=== PATIENT | female | born 1975 | race Hispanic/Latino ===

== ENCOUNTER 2017-11-26 12:01 | Emergency (ER) | payer MEDICAID, OTHER ==
[2017-11-26] MEDS ORDERED: Adacel (T-DAP) 0.5 ML VIAL ONE (12:11)
--- NOTE | 2017-11-26 12:48 | RAD ---
TWO VIEWS RIGHT FOREARM: Comparison: None. History: Puncture wound to the forearm with a meat thermometer at 11:00 today. Right arm pain. FINDINGS: Two views right forearm shows no evidence of fracture or dislocation. No radiopaque foreign body is s een. Mild soft tissue swelling is seen along the midportion of the radius and ulna. IMPRESSION: No evidence of acute osseous abnormality. POS: [facility]
[2017-11-26] MEDS ORDERED: Acetaminophen 325 MG TAB ONE (13:04)
[2017-11-26] MEDS ORDERED: Bacitracin Zinc 1 Packet ONE (13:04)
== END 2017-11-26 13:15 | disposition home or self-care (01) ==
LOC: SCSER 12:01
DX: S51.831A Puncture wound without foreign body of right forearm, initial encounter (principal); Z86.718 Personal history of other venous thrombosis and embolism; W22.8XXA Striking against or struck by other objects, initial encounter; Y99.0 Civilian activity done for income or pay
CPT/HCPCS: 90715

== ENCOUNTER 2018-02-11 06:47 | Inpatient (IN) | payer MEDICAID, SELFPAY ==
[2018-02-11 07:23] LABS: #Basophils 0.1 thou/uL (0.0-0.2); #Eosinphils 0.7 thou/uL (0.0-0.7); #Lymphocytes 1.1 thou/uL (1.20-3.40); #Monocytes 0.4 thou/uL (0.11-0.59); #Neutrophils 7.9 thou/uL (1.40-6.50); %Eosinophils 6.7 % (0.0-10.0); %Lymphocytes 11.2 % (21.0-51.0); %Monocytes 3.6 % (0.0-10.0); %Neutrophils 77.5 % (42.0-75.0); Hemoglobin 14.5 g/dL (12.0-16.0); Mean Corpuscular HGB CONC 35.9 g/dL (32.0-36.0); Mean Corpuscular Hemoglobin 30.4 pg (27.0-31.0); Mean Corpuscular Volume 84.8 fl (81.0-99.0); Mean Platelet Volume 7.4 fL (7.4-10.4); Platelet Count 235 thou/uL (130-400); RBC Distribution Width 12.5 % (11.5-14.5); Red Blood Cell (RBC) Count 4.78 mill/uL (4.20-5.40); White Blood Cell (WBC) Count 10.2 thou/uL (4.8-10.8)
[2018-02-11 07:28] LABS: PTT 28.1 SEC (22.9-36.1); Prothrombin Time 13.4 SEC (12.0-14.7)
[2018-02-11 07:36] LABS: ALT (SGPT) 25 U/L (8-55); AST (SGOT) 19 U/L (5-34); Albumin 3.7 g/dL (3.5-5.0); Alkaline Phosphatase 83 U/L (40-150); Anion Gap 15 mmol/L (10-20); BUN (Urea Nitrogen) 11 mg/dL (7.0-18.7); Bilirubin, Total 0.4 mg/dL (0.2-1.2); Calc. Creatinine Clearance 0 mL/min (70-130); Calcium 9.1 mg/dL (7.8-10.44); Carbon Dioxide 19 mmol/L (22-29); Chloride 111 mmol/L (98-107); Estimated GFR-MDRD 83; Globulin 3.4 g/dL (2.4-3.5); Glucose 100 mg/dL (70-105); Potassium 3.9 mmol/L (3.5-5.1); Protein, Total 7.1 g/dL (6.0-8.3); Sodium 141 mmol/L (136-145)
[2018-02-11 07:39] LABS: Troponin I Less than 0.010 ng/mL (< 0.028)
[2018-02-11 07:43] LABS: D-Dimer Test 17.94 *mcg/mL (0.27-0.43)
[2018-02-11] MEDS ORDERED: Enoxaparin Sodium 60 MG/0.6 ML SYRINGE ONE (08:40)
[2018-02-11] MEDS ORDERED: Acetaminophen 325 MG TAB ONE (10:21)
--- NOTE | 2018-02-11 10:21 | CT ---
CT PULMONARY ANGIO CHEST INCLUDING 3D RENDERING: Date: 02/11/18 HISTORY: 42-year-old female with history of chest pain. FINDINGS: There are multiple intra pulmonary artery filling defects including portions of the right upper lobe, right mid lung zone, and right lower lobe branches, as well as some left upper lobe and left lower l obe branches, evidence for extensive bilateral pulmonary emboli. There are some minimal primarily ple ural based parenchymal changes in the left apex, which could represent some pneumonia or pneumonitis, although given the PE may represent some atelectasis and/or evidence for pulmonary infarction, as we ll as some multifocal pulmonary infarction changes, which would be most marked in the left apex, righ t upper lobe, and left lower lobe. No definitive CT evidence for significant right heart strain. No m ediastinal mass or adenopathy. No pleural effusion or pericardial effusion. IMPRESSION: Extensive bilateral pulmonary emboli. Patchy mostly pleural based alveolar parenchymal changes involv ing the right upper lobe, left upper lobe, and left base, possibly representing patchy pneumonia vers us some changes of patchy pulmonary infarction given the extensive bilateral PE. Continue short-term follow-up in that regard. No mediastinal adenopathy or pleural effusion or pericardial effusion. Findings discussed with Dr. Patterson in the ER at 0840 hours. CODE CR. POS: [facility]
--- NOTE | 2018-02-11 10:43 | ULT ---
BILATERAL LOWER EXTREMITY VENOUS DOPPLER ULTRASOUND: Date: 02/11/18 HISTORY: Right posterior calf and thigh pain. TECHNIQUE: Vallejo scale ultrasound with color flow and spectral Doppler imaging of the deep venous systems of the lower extremities was performed bilaterally. FINDINGS: There is absence of flow and compression due to occlusive thrombus in the deep veins of the lower ext remities bilaterally extending from the right common femoral vein down to the mid posterior tibial ve in on the right and from the femoral vein to the mid posterior tibial vein on the left. The deep femo ral veins are patent on either side. IMPRESSION: Bilateral lower extremity deep venous thrombosis. Results discussed with Dr. Artis at 0848 hours. CODE CR. POS: [facility]
[2018-02-11] MEDS ORDERED: Iopamidol 370 76% 100 ML VIAL ONE (13:05)
[2018-02-11 14:21] VITALS: BMI 42.9
[2018-02-11 15:43] LABS: Troponin I Less than 0.010 ng/mL (< 0.028)
[2018-02-11] MEDS ORDERED: cloNIDine 0.1 MG TAB PO PRN (19:24)
[2018-02-11] MEDS ORDERED: Benzonatate 100 MG CAP PO PRN (19:24)
[2018-02-11] MEDS ORDERED: hydrALAZINE 20 MG/ML VIAL SLOW IVP PRN (19:24)
[2018-02-11] MEDS ORDERED: Ondansetron HCl/PF 4 MG/2 ML Vial IVP PRN (19:24)
[2018-02-11] MEDS: traMADol HCl 50 MG TAB PO PRN (20:22)
[2018-02-11] MEDS: Enoxaparin Sodium 100 MG/ML SYRINGE SC SCH (20:23)
[2018-02-11] MEDS: Enoxaparin Sodium 30 MG/0.3 ML SYRINGE SC SCH (20:23)
[2018-02-11] MEDS: Famotidine 20 MG TAB PO SCH (20:23)
[2018-02-11] MEDS ORDERED: Enoxaparin Sodium 80 MG/0.8 ML SYRINGE SC SCH (21:00)
--- NOTE | 2018-02-12 02:10 | HP ---
DATE OF ADMISSION: 02/11/2018 PRIMARY CARE PHYSICIAN: Dr. Fernando Sexton. CHIEF COMPLAINT: Right lower extremity pain and shortness of breath with chest pain. HISTORY OF PRESENT ILLNESS: This is a 42-year-old female, who presents to [facility] complaining of approximately 4-5 day history of increasing right lower extremity jaren n, redness and swelling. The patient states she initially noticed pain in the calf region as well as the thigh and became concerned of a possible blood clot in her leg after experiencing a left lower e xtremity DVT in 2002 after the of her child. The patient states she was on oral contraceptives at that time and developed a blood clot. The patient was treated intermittently with Coumadin; cira ricci, had been off Coumadin over the last 12-13 years until recently in 2016. The patient was on Coum prema, she states until 08/2017 where she abruptly discontinued the medication. The patient denied an y recent trauma, injury, long distance travel, recent surgeries or hormone replacement therapy. The patient does state that she was taking 650 mg of aspirin over the last 4-5 days after pain developed in the right lower extremity. The patient was checking the internet and google for her symptoms, try ing to self diagnose during this time course. The patient also noted increasing chest pain with marilyn p stabbing knife-like sensation in her back radiating to the front of her chest with increased cough and shortness of breath. The patient took Advil PM for some relief of her symptoms; however, the sym ptoms always returned. The patient denies any loss of consciousness, hemoptysis, fever or chills, or high altitude exposure. In the emergency department, the patient underwent general evaluation inclu ding bilateral venous Doppler study showing evidence of extensive bilateral DVTs of the lower extremi ties. The patient also underwent CT angiogram of the chest showing extensive bilateral pulmonary emb lili. The patient received Lovenox 1 mg/kg in the emergency room and was transferred to the [facility] for evaluation. PAST MEDICAL HISTORY: 1. History of left lower extremity DVT in 2002 with intermittent Coumadin. 2. Morbid obesity. 3. Question of hypertension. PAST SURGICAL HISTORY: 1. Status post section. 2. Status post hysterectomy. CURRENT MEDICATIONS: Aspirin 650 mg p.o. daily. ALLERGIES: No known drug allergies. FAMILY HISTORY: No inheritable diseases per patient report. SOCIAL HISTORY: The patient is single, accompanied by her significant other in the hospital. Works for [employer]. Denies alcohol, tobacco or illicit drug use. Funct ional of all activities of daily living. REVIEW OF SYSTEMS: The following complete review of systems was negative, unless otherwise mentioned in the HPI or below: Constitutional: Weight loss or gain, ability to conduct usual activities. Sk in: Rash, itching. Eyes: Double vision, pain. ENT/Mouth: Nose bleeding, neck stiffness, pain, te nderness. Cardiovascular: Palpitations, dyspnea on exertion, orthopnea. Respiratory: Shortness of breath, wheezing, cough, hemoptysis, fever or night sweats. Gastrointestinal: Poor appetite, abdom inal pain, heartburn, nausea, vomiting, constipation, or diarrhea. Genitourinary: Urgency, frequenc y, dysuria, nocturia. Musculoskeletal: Pain, swelling. Neurologic/Psychiatric: Anxiety, depressio n. Allergy/Immunologic: Skin rash, bleeding tendency. Otherwise negative except as stated per HPI. PHYSICAL EXAMINATION: VITAL SIGNS: On admission, blood pressure 122/48, pulse 84, respiratory rate 23, temperature 98.4 de grees Fahrenheit, O2 saturation is 95% on room air. GENERAL APPEARANCE: This is a 42-year-old female, alert and oriented x3, pleasant, in mild distress. HEENT: Pupils are equal, round, and reactive to light and accommodation. Extraocular muscles are in tact. No scleral icterus, no conjunctival injection. Nares patent. OP is clear. No oral lesions. NECK: Supple, no cervical adenopathy, no thyromegaly, no carotid bruits, no JVD appreciated. Cervic al spine with full active and passive range of motion. No meningeal signs appreciated. LUNGS: Diminished breath sounds in the bases bilaterally. No rhonchi or wheezing. CARDIOVASCULAR: S1, S2 with 1-2/6 systolic ejection murmur in the right upper sternal border. ABDOMEN: Obese, soft, nontender, nondistended. Bowel sounds are positive in all four quadrants. Th ere is no hepatosplenomegaly, no abdominal bruits, no rebound or guarding appreciated. EXTREMITIES: Right lower extremity warm to touch with mild erythema. Questionable palpable cord at the calf region on the right lower extremity. Left lower extremity larger than the right lower extre mity. Neurovascularly intact distally. Pulses are palpable distally at the dorsalis pedis, posterio r tibial, and popliteal arteries bilaterally. Capillary refill less than 2 seconds. NEUROLOGIC: Cranial nerves II-XII are grossly intact. No focal or lateralizing signs appreciated. PERTINENT LABORATORY AND X-RAY FINDINGS: Sodium 141, potassium 3.9, chloride 111, CO2 of 19, BUN 11, creatinine 0.76, estimated GFR of 83, glucose 100, calcium 9.1. LFTs within normal limits. Troponi n I negative x3. BNP 54. CBC showed a white blood cell count of 10.2, hemoglobin 14.5, hematocrit 4 1, platelet count 235 with 78% neutrophils. PT 13.4, INR 1.0, PTT 28.4. D-dimer 17.94. Bilateral l ower extremity venous Doppler study dated 02/11/2018 showed extensive bilateral lower extremity deep venous thrombosis. CT angiogram of the chest dated 02/11/2018 showed extensive bilateral pulmonary e mboli. Telemetry monitoring shows sinus mechanism with heart rates in the 70s. ASSESSMENT AND PLAN: 1. Acute bilateral pulmonary emboli. The patient will be admitted to the telemetry unit. We will c ontinue Lovenox 1 mg/kg subcutaneously q.12 hours. Check 2D transthoracic echocardiogram for ejectio n fraction and valvular function. Suspect presentation secondary to right lower extremity deep venou s thrombosis. Likely will need long-term Coumadin for anticoagulation. 2. Acute right lower extremity deep venous thrombosis/chronic left lower extremity deep venous throm bosis. See #1 above. Continue Lovenox 1 mg/kg subcutaneously q.12 hours. Hold sequential compressio n devices. 3. Elevated blood pressure. We will continue serial blood pressure monitoring. Clonidine and hydra lazine p.r.n. systolic greater than or equal to 170. 4. Chest pain with dyspnea secondarily to #1. We will continue oxygen supplementation to maintain O 2 saturations greater than or equal to 90%. Limited ambulation over the next 48 hours. Consider pul monology consultation if clinically decompensating. 5. Prophylaxis. Hold sequential compression devices due to bilateral lower extremity deep venous th rombosis. Pepcid 20 mg p.o. b.i.d. 6. Code status is FULL. Surrogate medical decision maker is Dewayne Juarez.
[2018-02-12 06:01] LABS: INR-International Normal Ratio 1.1; Prothrombin Time 14.1 SEC (12.0-14.7)
[2018-02-12 06:08] LABS: Eosinophils 11 % (0-10); Hemoglobin 12.8 g/dL (12.0-16.0); Lymphocytes 23 % (21-51); MDiff Complete? YES; Mean Corpuscular HGB CONC 32.9 g/dL (32.0-36.0); Mean Corpuscular Hemoglobin 29.6 pg (27.0-31.0); Mean Corpuscular Volume 89.9 fl (81.0-99.0); Mean Platelet Volume 7.6 fL (7.4-10.4); Monocytes 7 % (0-10); Neutrophil 59 % (42-75); Platelet Count 254 thou/uL (130-400); RBC Distribution Width 12.9 % (11.5-14.5); Red Blood Cell (RBC) Count 4.31 mill/uL (4.20-5.40); White Blood Cell (WBC) Count 7.1 thou/uL (4.8-10.8)
[2018-02-12 06:31] LABS: ALT (SGPT) 20 U/L (8-55); AST (SGOT) 15 U/L (5-34); Albumin 3.3 g/dL (3.5-5.0); Alkaline Phosphatase 82 U/L (40-150); Anion Gap 12 mmol/L (10-20); BUN (Urea Nitrogen) 9 mg/dL (7.0-18.7); Bilirubin, Total 0.4 mg/dL (0.2-1.2); Calc. Creatinine Clearance 185 mL/min (70-130); Calcium 8.7 mg/dL (7.8-10.44); Carbon Dioxide 24 mmol/L (22-29); Chloride 107 mmol/L (98-107); Estimated GFR-MDRD 78; Globulin 2.8 g/dL (2.4-3.5); Glucose 103 mg/dL (70-105); Magnesium 1.8 mg/dL (1.6-2.6); Potassium 3.9 mmol/L (3.5-5.1); Protein, Total 6.1 g/dL (6.0-8.3); Sodium 139 mmol/L (136-145)
[2018-02-12] MEDS: Enoxaparin Sodium 100 MG/ML SYRINGE SC SCH ×2 (08:51→20:09)
[2018-02-12] MEDS: Famotidine 20 MG TAB PO SCH ×2 (08:55→20:07)
[2018-02-12] MEDS: Enoxaparin Sodium 30 MG/0.3 ML SYRINGE SC SCH ×2 (08:55→20:09)
[2018-02-12] MEDS: Acetaminophen 500 MG TAB PO PRN (13:02)
--- NOTE | 2018-02-12 17:49 | PDOC.PN ---
- Subjective Encounter Start Date: 02/12/18 Encounter Start Time: 17:30 Subjective: f/u for acute bilat PE's and DVT's on Lovenox. O2 sats remain in upper -: 90's on RA. Some weakness and SOB when walking to bathroom but o/w -: feels better. No increase swelling in RLE. - Objective Resuscitation Status: Resuscitation Status FULL:Full Resuscitation MAR Reviewed: Yes Vital Signs & Weight: Vital Signs (12 hours) Temp Pulse Resp BP Pulse Ox 02/12/18 12:03 98.3 F 79 17 123/70 96 02/12/18 08:47 98.1 F 67 17 127/80 96 Weight Weight 286 lb I&O: 02/11/18 02/12/18 02/13/18 06:59 06:59 06:59 Intake Total 1700 Output Total 600 Balance 1100 Result Diagrams: 02/12/18 05:12 02/12/18 05:12 Additional Labs: Laboratory Tests 02/11/18 02/12/18 07:08 05:12 B-Natriuretic Peptide 54.3 TSH 3rd Generation [id number] Radiology Reviewed by me: Yes (2D echo pending) EKG Reviewed by me: Yes (Tele - SR) Phys Exam - Physical Examination Constitutional: NAD HEENT: PERRLA, moist MMs, sclera anicteric, oral pharynx no lesions Neck: no nodes, no JVD, supple Respiratory: no wheezing, no rales, no rhonchi, clear to auscultation bilateral S1, S2 Cardiovascular: RRR, no significant murmur, no rub, gallop Gastrointestinal: soft, non-tender, no distention, positive bowel sounds L> RLE diameter in calf region, LLE with mild edema Musculoskeletal: pulses present Neurological: non-focal, normal sensation, moves all 4 limbs Psychiatric: normal affect, A&O x 3 Skin: no rash, normal turgor, cap refill <2 seconds Dx/Plan (1) Bilateral pulmonary embolism Code(s): I26.99 - OTHER PULMONARY EMBOLISM WITHOUT ACUTE COR PULMONALE Status : Acute Comment: Extensive emboli bilaterally on CTA, continue Lovenox 100mg sc q12h (2) DVT of lower extremity, bilateral Code(s): I82.403 - ACUTE EMBOLISM AND THOMBOS UNSP DEEP VEINS OF LOW EXTRM, BI Status: Acute Comment: Extensive bilateral involvement, continue Lovenox 100mg SC q12h, limited mobility over next 48h (3) Dyspnea Code(s): R06.00 - DYSPNEA, UNSPECIFIED Status: Acute Comment: Secondary to # 1, no hypoxia currently documented (4) Elevated blood pressure reading Code(s): R03.0 - ELEVATED BLOOD-PRESSURE READING, W/O DIAGNOSIS OF HTN Status : Chronic Comment: Continue to monitor BP trend, consider low-dose BP medication prior to d/c - Plan plan discussed w/ family, social work coordinator Stable currently -: Continue Lovenox 100mg sc q12h -: Consider OAC options in next 48-72h given extensive clot burden -: Limited ambulation -: AM lab: H/H, stool hemoccult * .
[2018-02-12] MEDS: traMADol HCl 50 MG TAB PO PRN (20:07)
[2018-02-13 05:11] LABS: Hemoglobin 12.6 g/dL (12.0-16.0); Platelet Count 283 thou/uL (130-400)
[2018-02-13] MEDS: Enoxaparin Sodium 100 MG/ML SYRINGE SC SCH ×2 (09:26→20:47)
[2018-02-13] MEDS: Enoxaparin Sodium 30 MG/0.3 ML SYRINGE SC SCH ×2 (09:27→20:46)
[2018-02-13] MEDS: Famotidine 20 MG TAB PO SCH ×2 (09:27→20:47)
--- NOTE | 2018-02-13 11:26 | PDOC.PN ---
- Subjective Encounter Start Date: 02/13/18 Encounter Start Time: 11:05 Subjective: f/u for bilat PE's and DVT's on Lovenox. Some SOB when ambulating to -: restroom but less CP and RLE pain. Remains off O2 with sats 95%. - Objective Resuscitation Status: Resuscitation Status FULL:Full Resuscitation MAR Reviewed: Yes Vital Signs & Weight: Vital Signs (12 hours) Temp Pulse Resp BP Pulse Ox 02/13/18 09:35 97.3 F L 63 18 140/83 98 02/13/18 04:06 98.8 F 76 12 121/70 98 Weight Weight 289 lb 14.4 oz I&O: 02/12/18 02/13/18 02/14/18 06:59 06:59 06:59 Intake Total 1700 1320 Output Total 600 300 500 Balance 1100 1020 -500 Result Diagrams: 02/13/18 04:55 02/12/18 05:12 Radiology Reviewed by me: Yes (2D echo - pending) EKG Reviewed by me: Yes (Tele - SR) Phys Exam - Physical Examination Constitutional: NAD HEENT: PERRLA, moist MMs, sclera anicteric, oral pharynx no lesions Neck: no nodes, no JVD, supple diminished in bases o/w clear Respiratory: no wheezing, no rales, no rhonchi S1, S2 Cardiovascular: RRR, no significant murmur, no rub, gallop Gastrointestinal: soft, non-tender, no distention, positive bowel sounds LLE> RLE diameter in lower segment minimal edema Musculoskeletal: pulses present Neurological: non-focal, normal sensation, moves all 4 limbs Psychiatric: normal affect, A&O x 3 Skin: no rash, normal turgor, cap refill <2 seconds Dx/Plan (1) Bilateral pulmonary embolism Code(s): I26.99 - OTHER PULMONARY EMBOLISM WITHOUT ACUTE COR PULMONALE Status : Acute Comment: Extensive emboli bilaterally on CTA, continue Lovenox 100mg sc q12h, consider OAC options for d/c (2) DVT of lower extremity, bilateral Code(s): I82.403 - ACUTE EMBOLISM AND THOMBOS UNSP DEEP VEINS OF LOW EXTRM, BI Status: Acute Comment: Extensive bilateral involvement, continue Lovenox 100mg SC q12h, limited mobility over next 48h (3) Dyspnea Code(s): R06.00 - DYSPNEA, UNSPECIFIED Status: Acute Comment: Secondary to # 1, no hypoxia currently documented (4) Elevated blood pressure reading Code(s): R03.0 - ELEVATED BLOOD-PRESSURE READING, W/O DIAGNOSIS OF HTN Status : Chronic Comment: Continue to monitor BP trend, consider low-dose BP medication prior to d/c - Plan social services manager Stable currently -: Continue Lovenox 100mg sc q12h -: Consider OAC options, ? Coumadin given limited resources -: 2D echo completed with results pending -: AM lab: H/H * .
[2018-02-13] MEDS: traMADol HCl 50 MG TAB PO PRN ×2 (12:25→16:57)
[2018-02-13] MEDS: Ondansetron ODT 4 MG TAB PO PRN ×2 (12:26→16:57)
[2018-02-13] MEDS: Acetaminophen 500 MG TAB PO PRN (14:56)
[2018-02-14] MEDS: Enoxaparin Sodium 100 MG/ML SYRINGE SC SCH ×2 (08:16→20:33)
[2018-02-14] MEDS: Famotidine 20 MG TAB PO SCH ×2 (08:17→20:29)
[2018-02-14] MEDS: Enoxaparin Sodium 30 MG/0.3 ML SYRINGE SC SCH ×2 (08:17→20:28)
[2018-02-14] MEDS: Acetaminophen 500 MG TAB PO PRN (10:21)
--- NOTE | 2018-02-14 16:53 | PDOC.PN ---
- Subjective Encounter Start Date: 02/14/18 Encounter Start Time: 16:35 Subjective: f/u for bilat PE's/DVT's on Lovenox. Intermittent SOB but no hypoxia. -: Some RLE pain with walking to bathroom. No N/V. No CP or fever. c/o -: SU. - Objective Resuscitation Status: Resuscitation Status FULL:Full Resuscitation MAR Reviewed: Yes Vital Signs & Weight: Vital Signs (12 hours) Temp Pulse Resp BP Pulse Ox 02/14/18 12:00 98.2 F 72 16 123/84 96 02/14/18 08:16 98.0 F 66 16 96 02/14/18 07:49 98.0 F 66 16 130/86 96 Weight Weight 291 lb I&O: 02/13/18 02/14/18 02/15/18 06:59 06:59 06:59 Intake Total 1320 1610 Output Total 300 2020 Balance 1020 -410 Result Diagrams: 02/13/18 04:55 02/12/18 05:12 Radiology Reviewed by me: Yes (2D Echo - EF 55%, mod LAE) EKG Reviewed by me: Yes (Tele - SR) Phys Exam - Physical Examination Constitutional: NAD HEENT: PERRLA, moist MMs, sclera anicteric, oral pharynx no lesions Neck: no nodes, no JVD, supple Respiratory: no wheezing, no rales, no rhonchi, clear to auscultation bilateral S1, S2 Cardiovascular: RRR, no significant murmur, no rub, gallop, irregular Gastrointestinal: soft, non-tender, no distention, positive bowel sounds Musculoskeletal: no edema, pulses present Neurological: non-focal, normal sensation, moves all 4 limbs Psychiatric: normal affect, A&O x 3 Skin: no rash, normal turgor, cap refill <2 seconds Dx/Plan (1) Bilateral pulmonary embolism Code(s): I26.99 - OTHER PULMONARY EMBOLISM WITHOUT ACUTE COR PULMONALE Status : Acute Comment: Extensive emboli bilaterally on CTA, continue Lovenox 130mg sc q12h, consider OAC options for d/c (2) DVT of lower extremity, bilateral Code(s): I82.403 - ACUTE EMBOLISM AND THOMBOS UNSP DEEP VEINS OF LOW EXTRM, BI Status: Acute Comment: Extensive bilateral involvement, continue Lovenox 130mg SC q12h, limited mobility over next 48h (3) Dyspnea Code(s): R06.00 - DYSPNEA, UNSPECIFIED Status: Acute Comment: Secondary to # 1, no hypoxia currently documented (4) Elevated blood pressure reading Code(s): R03.0 - ELEVATED BLOOD-PRESSURE READING, W/O DIAGNOSIS OF HTN Status : Chronic Comment: Continue to monitor BP trend, consider low-dose BP medication prior to d/c - Plan social sciences professor, out of bed/ambulate Continue Lovenox 130mg sc q12h -: Consider OAC options for d/c, limited resources -: Sennokot-S BID -: Tramadol 50mg po q6h prn SU -: OOB/ambulate in room * AM lab: H/H, stool guaiac
[2018-02-14] MEDS: traMADol HCl 50 MG TAB PO PRN ×2 (17:01→20:29)
[2018-02-14] MEDS ORDERED: Senokot S 8.6-50 MG TAB PO SCH (18:00)
[2018-02-15 05:01] LABS: Hemoglobin 13.6 g/dL (12.0-16.0); Platelet Count 284 thou/uL (130-400)
[2018-02-15] MEDS: Enoxaparin Sodium 30 MG/0.3 ML SYRINGE SC SCH (08:21)
[2018-02-15] MEDS: Famotidine 20 MG TAB PO SCH ×2 (08:21→20:58)
[2018-02-15] MEDS: Senokot S 8.6-50 MG TAB PO SCH ×2 (08:21→20:59)
[2018-02-15] MEDS: Enoxaparin Sodium 100 MG/ML SYRINGE SC SCH (08:21)
[2018-02-15] MEDS: traMADol HCl 50 MG TAB PO PRN ×3 (08:24→22:50)
[2018-02-15] MEDS: Acetaminophen 500 MG TAB PO PRN (13:30)
[2018-02-15] MEDS ORDERED: ALPRAZolam 0.25 MG TAB PO SCH (19:15)
[2018-02-15 19:21] LABS: Troponin I Less than 0.010 ng/mL (< 0.028)
--- NOTE | 2018-02-15 19:36 | PDOC.PN ---
- Subjective Encounter Start Date: 02/15/18 Encounter Start Time: 11:00 Patient seen and examined for PE/DVT. SOB on mild exertion. No overnight events - Objective Resuscitation Status: Resuscitation Status FULL:Full Resuscitation MAR Reviewed: Yes Vital Signs & Weight: Vital Signs (12 hours) Temp Pulse Resp BP Pulse Ox 02/15/18 16:00 68 16 134/69 94 L 02/15/18 11:13 64 132/79 02/15/18 08:21 98.2 F 59 L 16 96 02/15/18 07:45 98.2 F 59 L 16 115/74 96 Weight Weight 290 lb I&O: 02/14/18 02/15/18 02/16/18 06:59 06:59 06:59 Intake Total 1610 240 Output Total 2019 750 Balance -410 -510 Result Diagrams: 02/15/18 04:53 02/15/18 04:53 EKG Reviewed by me: Yes (Tele SR) Phys Exam - Physical Examination Constitutional: NAD Respiratory: no wheezing, no rhonchi Cardiovascular: RRR, no rub Gastrointestinal: soft, non-tender, positive bowel sounds Musculoskeletal: no edema Neurological: moves all 4 limbs Dx/Plan - Plan IMPRESSION: 1. Bilateral PE/DVT 2. Morbid obesity BMI 44.1 3. CKD 2 4. SOB on exertion due to #1 PLAN: * Start Eliquis tonight * DC Lovenox * Cont tele monitoring * CM working for outpt Eliquis * DC in 24 hr if stable Review of Systems - Review of Systems Respiratory: negative: Cough, Dry, Shortness of Breath, Hemoptysis, SOB with Excertion, Pleuritic Pain, Sputum, Wheezing Cardiovascular: negative: chest pain, palpitations, orthopnea, paroxysmal nocturnal dyspnea, edema, light headedness, other - Medications/Allergies Allergies/Adverse Reactions: Allergies Allergy/AdvReac Type Severity Reaction Status Date / Time No Known Drug Allergies Allergy Verified 02/11/18 17:12 Medications: Current Medications Acetaminophen (Tylenol) 1,000 mg PO Q6H PRN PRN Reason: Headache/Fever or Mild Pain Last Admin: 02/15/18 13:30 Dose: 1,000 mg Alprazolam (Xanax) 0.25 mg PO NOW [facility] Stop: 02/15/18 21:15 Apixaban (Eliquis) 10 mg PO BID [facility] Benzonatate (Tessalon) 200 mg PO Q6H PRN PRN Reason: Cough Clonidine (Catapres) 0.1 mg PO Q4H PRN PRN Reason: Systolic BP > 180 Famotidine (Pepcid) 20 mg PO BID [facility] Last Admin: 02/15/18 08:21 Dose: 20 mg Hydralazine HCl (Apresoline) 10 mg SLOW IVP Q4H PRN PRN Reason: Systolic BP > 180 Ondansetron HCl (Zofran Odt) 4 mg PO Q6H PRN PRN Reason: Nausea/Vomiting Last Admin: 02/13/18 16:57 Dose: 4 mg Ondansetron HCl (Zofran) 4 mg IVP Q6H PRN PRN Reason: Nausea/Vomiting Senna/Docusate Sodium (Senokot S) 1 tab PO BID [facility] Last Admin: 02/15/18 08:21 Dose: 1 tab Tramadol HCl (Ultram) 50 mg PO Q4H PRN PRN Reason: Moderate Pain (4-6) Last Admin: 02/15/18 18:31 Dose: 50 mg
[2018-02-15] MEDS: Apixaban 5 MG TAB PO SCH (20:58)
[2018-02-15 22:29] LABS: Troponin I Less than 0.010 ng/mL (< 0.028)
[2018-02-16 06:35] LABS: Anion Gap 11 mmol/L (10-20); BUN (Urea Nitrogen) 16 mg/dL (7.0-18.7); Calc. Creatinine Clearance 190 mL/min (70-130); Calcium 8.8 mg/dL (7.8-10.44); Carbon Dioxide 24 mmol/L (22-29); Chloride 104 mmol/L (98-107); Estimated GFR-MDRD 79; Glucose 85 mg/dL (70-105); Potassium 4.2 mmol/L (3.5-5.1); Sodium 135 mmol/L (136-145)
[2018-02-16] MEDS: Senokot S 8.6-50 MG TAB PO SCH ×2 (09:00→20:09)
[2018-02-16] MEDS: Famotidine 20 MG TAB PO SCH ×2 (09:00→20:08)
[2018-02-16] MEDS: Apixaban 5 MG TAB PO SCH ×2 (09:00→20:08)
[2018-02-16] MEDS: traMADol HCl 50 MG TAB PO PRN ×3 (09:14→20:08)
--- NOTE | 2018-02-16 21:24 | PDOC.PN ---
- Subjective Encounter Start Date: 02/16/18 Encounter Start Time: 10:30 Patient seen and examined for PE/DVT. Left sided Pleuritic chest pain +. Overnight events noted - Objective Resuscitation Status: Resuscitation Status FULL:Full Resuscitation MAR Reviewed: Yes Vital Signs & Weight: Vital Signs (12 hours) Temp Pulse Resp BP Pulse Ox 02/16/18 16:28 98 F 74 18 123/81 97 02/16/18 12:15 97.8 F 69 16 131/91 H 99 Weight Weight 281 lb 3.2 oz I&O: 02/15/18 02/16/18 02/17/18 06:59 06:59 06:59 Intake Total 240 360 960 Output Total 750 0 300 Balance -510 360 660 Result Diagrams: 02/15/18 04:53 02/16/18 05:38 EKG Reviewed by me: Yes (Tele SR) Phys Exam - Physical Examination Constitutional: NAD Respiratory: no wheezing, no rales, no rhonchi Cardiovascular: RRR, no rub Gastrointestinal: soft, non-tender, positive bowel sounds Musculoskeletal: no edema Dx/Plan - Plan IMPRESSION/PLAN: 1. Bilateral PE/DVT - On Eliquis - Cont to have on and off CP - Troponins negative - Cont tele monitoring - No Rt heart strain on Echo 2. Morbid obesity BMI 44.1 - Counselled. 3. CKD 2 4. SOB on exertion due to #1 5. Disposition - DC home in 24 hr if stable - Med assist Review of Systems - Review of Systems Respiratory: negative: Cough, Dry, Shortness of Breath, Hemoptysis, SOB with Excertion, Pleuritic Pain, Sputum, Wheezing Cardiovascular: negative: chest pain, palpitations, orthopnea, paroxysmal nocturnal dyspnea, edema, light headedness, other - Medications/Allergies Allergies/Adverse Reactions: Allergies Allergy/AdvReac Type Severity Reaction Status Date / Time No Known Drug Allergies Allergy Verified 02/11/18 17:12 Medications: Current Medications Acetaminophen (Tylenol) 1,000 mg PO Q6H PRN PRN Reason: Headache/Fever or Mild Pain Last Admin: 02/15/18 13:30 Dose: 1,000 mg Apixaban (Eliquis) 10 mg PO BID [facility] Last Admin: 02/16/18 20:08 Dose: 10 mg Benzonatate (Tessalon) 200 mg PO Q6H PRN PRN Reason: Cough Clonidine (Catapres) 0.1 mg PO Q4H PRN PRN Reason: Systolic BP > 180 Famotidine (Pepcid) 20 mg PO BID [facility] Last Admin: 02/16/18 20:08 Dose: 20 mg Hydralazine HCl (Apresoline) 10 mg SLOW IVP Q4H PRN PRN Reason: Systolic BP > 180 Ondansetron HCl (Zofran Odt) 4 mg PO Q6H PRN PRN Reason: Nausea/Vomiting Last Admin: 02/13/18 16:57 Dose: 4 mg Ondansetron HCl (Zofran) 4 mg IVP Q6H PRN PRN Reason: Nausea/Vomiting Senna/Docusate Sodium (Senokot S) 1 tab PO BID [facility] Last Admin: 02/16/18 20:09 Dose: 1 tab Tramadol HCl (Ultram) 50 mg PO Q4H PRN PRN Reason: Moderate Pain (4-6) Last Admin: 02/16/18 20:08 Dose: 50 mg
[2018-02-16] MEDS ORDERED: Polyethylene Glycol 3350 17 GM Packet PO PRN (21:30)
[2018-02-17 05:11] LABS: Platelet Count 301 thou/uL (130-400)
[2018-02-17] MEDS: traMADol HCl 50 MG TAB PO PRN (08:10)
[2018-02-17] MEDS: Apixaban 5 MG TAB PO SCH (08:11)
[2018-02-17] MEDS: Senokot S 8.6-50 MG TAB PO SCH (08:11)
[2018-02-17] MEDS: Famotidine 20 MG TAB PO SCH (08:11)
--- NOTE | 2018-02-17 09:17 | PDOC.PN ---
- Subjective Encounter Start Date: 02/17/18 Encounter Start Time: 10:15 Subjective: Patient with right lower extremity pain, improving. Chest pain better. -: Ambulating and saturating well off O2. Chest pain is better, still -: somewhat short of breath. - Objective Resuscitation Status: Resuscitation Status FULL:Full Resuscitation MAR Reviewed: Yes Vital Signs & Weight: Vital Signs (12 hours) Temp Pulse Resp BP Pulse Ox 02/17/18 08:08 98.9 F 70 18 101/71 96 02/17/18 03:41 98.3 F 73 15 103/57 L 94 L Weight Weight 286 lb 3.2 oz I&O: 02/16/18 02/17/18 02/18/18 06:59 06:59 06:59 Intake Total 360 960 Output Total 0 850 Balance 360 110 Result Diagrams: 02/17/18 04:49 02/17/18 04:49 Phys Exam - Physical Examination Constitutional: NAD morbid obesity HEENT: moist MMs Respiratory: no wheezing, no rales, no rhonchi Cardiovascular: RRR, no significant murmur Gastrointestinal: soft, positive bowel sounds right calf pain to palpation, mild swelling and warmth, no significant erythema, good pulses Neurological: non-focal, moves all 4 limbs Psychiatric: normal affect, A&O x 3 Dx/Plan (1) Bilateral pulmonary embolism Code(s): I26.99 - OTHER PULMONARY EMBOLISM WITHOUT ACUTE COR PULMONALE Status : Acute Comment: Extensive emboli bilaterally on CTA, on Elliquis, will need assistance on d/c (2) DVT of lower extremity, bilateral Code(s): I82.403 - ACUTE EMBOLISM AND THOMBOS UNSP DEEP VEINS OF LOW EXTRM, BI Status: Acute Comment: Extensive bilateral involvement (3) Morbid obesity Code(s): E66.01 - MORBID (SEVERE) OBESITY DUE TO EXCESS CALORIES Status: Chronic (4) CKD (chronic kidney disease) Code(s): N18.9 - CHRONIC KIDNEY DISEASE, UNSPECIFIED Status: Chronic Qualifiers: Chronic kidney disease stage: stage 1 Qualified Code(s): N18.1 - Chronic kidney disease, stage 1 - Plan cont current plan of care, PT/OT, director social service D/C once outpatient medication arranged * . - Discharge Day Encounter end time: 10:45
[2018-02-17 11:41] VITALS: BP 103/67; TEMP 99
--- NOTE | 2018-02-17 12:44 | DIS ---
PRIMARY CARE PHYSICIAN: Dr. Fernando Sexton REASON FOR ADMISSION: Acute bilateral pulmonary emboli. DISCHARGE DIAGNOSES: 1. Bilateral pulmonary embolism. 2. Bilateral lower extremity deep venous thrombosis. 3. Morbid obesity. 4. Chronic kidney disease. PROCEDURES: 1. CTA of the chest and thorax showing extensive bilateral pulmonary emboli along with some patchy p ulmonary infarction. 2. Lower extremity ultrasound showing bilateral lower extremity deep venous thrombosis. 3. Echocardiogram showing ejection fraction of 50-55%, no evidence for right heart strain or pulmona ry hypertension. CONSULTATIONS: None. SUMMARY OF HOSPITAL COURSE: This is a 42-year-old female with a history of previous DVT int ermittently on Coumadin and stopped last year. She presented with pain in her right lower extremity and shortness of breath with chest pain. She was diagnosed with a bilateral DVT and bilateral pulmon aman embolism. She was started on Lovenox and this was switched to Eliquis. She has had improvement of her symptoms over her hospitalization and is today stable to go home. DISCHARGE MANAGEMENT: Discharged home. DISCHARGE MEDICATIONS: 1. Eliquis 10 mg twice a day for 1 week, followed by 5 mg twice a day after that. She was given a f irst months free coupon to obtain her Eliquis at the pharmacy. 2. Tessalon Perles 200 mg q.6h. as needed for cough, 30 caps dispensed. 3. Tramadol 50 mg every 4 hours as needed for pain, 20 tablets dispensed. ACTIVITIES: As tolerated. DIET: Regular diet. FOLLOWUP: Follow up with Dr. Fernando Sexton in 7 days.
== END 2018-02-17 13:19 | disposition home or self-care (01) | DRG 176 ==
LOC: SCSER 06:47 → SCSEROBS 08:54 → 2NO 13:47
PROVIDERS: ADMIT Internal Medicine; ATTEND Internal Medicine
DX: I26.99 Other pulmonary embolism without acute cor pulmonale (principal); I82.403 Acute embolism and thrombosis of unspecified deep veins of lower extremity, bilateral; Z68.41 Body mass index [BMI] 40.0-44.9, adult; E66.01 Morbid (severe) obesity due to excess calories; Z79.899 Other long term (current) drug therapy; Z79.82 Long term (current) use of aspirin; R03.0 Elevated blood-pressure reading, without diagnosis of hypertension; N18.9 Chronic kidney disease, unspecified
CPT/HCPCS: 36415; 71275; 80048; 80053; 82553; 82565; 83735; 83880; 84443; 84484; 85007; 85014; 85018; 85025; 85027; 85049; 85379; 85610; 85730; 90471; 90732; 93005; 93306; 93970; 96372; G0009; J1650; Q0162

== ENCOUNTER 2018-05-22 18:38 | Inpatient (IN) | payer OTHER, SELFPAY ==
[~2018-05-22 18:38] MED LIST: ISOVUE-370 76%-LOCM 1 ML ONE
[2018-05-22] MEDS ORDERED: Ondansetron HCl/PF 4 MG/2 ML Vial ONE (18:52)
[2018-05-22 18:57] LABS: #Basophils 0.1 thou/uL (0.0-0.2); #Eosinphils 0.3 thou/uL (0.0-0.7); #Lymphocytes 1.9 thou/uL (1.20-3.40); #Monocytes 0.6 thou/uL (0.11-0.59); #Neutrophils 5.3 thou/uL (1.40-6.50); %Eosinophils 4.2 % (0.0-10.0); %Lymphocytes 23.6 % (21.0-51.0); %Monocytes 7.3 % (0.0-10.0); Hemoglobin 15.9 g/dL (12.0-16.0); Mean Corpuscular HGB CONC 35.5 g/dL (32.0-36.0); Mean Corpuscular Hemoglobin 31.4 pg (27.0-31.0); Mean Corpuscular Volume 88.5 fL (78.0-98.0); Mean Platelet Volume 8.6 fL (7.4-10.4); Platelet Count 205 thou/uL (130-400); RBC Distribution Width 13.6 % (11.5-14.5); Red Blood Cell (RBC) Count 5.05 mill/uL (4.20-5.40); White Blood Cell (WBC) Count 8.2 thou/uL (4.8-10.8)
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
[2018-05-22 19:19] LABS: ALT (SGPT) 15 U/L (8-55); AST (SGOT) 20 U/L (5-34); Albumin 4.1 g/dL (3.5-5.0); Alkaline Phosphatase 79 U/L (40-150); Anion Gap 13 mmol/L (10-20); BUN (Urea Nitrogen) 14 mg/dL (7.0-18.7); Bilirubin, Total 0.5 mg/dL (0.2-1.2); Calc. Creatinine Clearance 0 mL/min (70-130); Calcium 9.1 mg/dL (7.8-10.44); Carbon Dioxide 18 mmol/L (22-29); Chloride 114 mmol/L (98-107); Estimated GFR-MDRD 60; Glucose 94 mg/dL (70-105); Potassium 3.9 mmol/L (3.5-5.1); Protein, Total 7.1 g/dL (6.0-8.3); Sodium 141 mmol/L (136-145)
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
[2018-05-22 19:40] LABS: INR-International Normal Ratio 1.1; PTT 28.5 SEC (22.9-36.1); Prothrombin Time 14.7 SEC (12.0-14.7)
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
[2018-05-22] MEDS ORDERED: Fentanyl 100 MCG/2 ML VIAL ONE ×2 (20:37→21:45)
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
[2018-05-22] MEDS ORDERED: Midazolam HCl 2 mg/2 ml Vial ONE (21:44)
[2018-05-23 00:27] VITALS: BMI 43.9
[2018-05-23] MEDS ORDERED: hydrALAZINE 20 MG/ML VIAL SLOW IVP PRN (01:20)
[2018-05-23] MEDS ORDERED: Promethazine HCl 25 MG/ML VIAL IM PRN ×2 (01:20)
[2018-05-23] MEDS ORDERED: Ondansetron ODT 4 MG TAB PO PRN (01:20)
[2018-05-23] MEDS ORDERED: Dextrose 5% in Water 1,000 ML IV PRN (01:20)
[2018-05-23] MEDS ORDERED: Dextrose 50% Abboject 50 ML SYRINGE SLOW IVP PRN (01:20)
[2018-05-23] MEDS ORDERED: Famotidine/PF 20 mg/2ml Vial SLOW IVP SCH (01:30)
[2018-05-23] MEDS: Ondansetron HCl/PF 4 MG/2 ML Vial IVP PRN ×2 (01:50→10:57)
[2018-05-23] MEDS: Morphine 4 MG/ML VIAL SLOW IVP PRN ×5 (01:51→22:04)
[2018-05-23] MEDS: Sodium Chloride 0.9% 1,000 ML IV SCH ×3 (01:52→17:34)
[2018-05-23 02:12] LABS: Hemoglobin 13.1 g/dL (12.0-16.0)
[2018-05-23 02:39] LABS: Anion Gap 11 mmol/L (10-20); BUN (Urea Nitrogen) 15 mg/dL (7.0-18.7); Calc. Creatinine Clearance 133 mL/min (70-130); Calcium 8.4 mg/dL (7.8-10.44); Carbon Dioxide 18 mmol/L (22-29); Chloride 115 mmol/L (98-107); Estimated GFR-MDRD 52; Glucose 143 mg/dL (70-105); Potassium 4.4 mmol/L (3.5-5.1); Sodium 140 mmol/L (136-145)
--- NOTE | 2018-05-23 03:48 | OP ---
PREOPERATIVE DIAGNOSIS: Fracture, left kidney. POSTOPERATIVE DIAGNOSIS: Fracture, left kidney. PROCEDURE: Abdominal aortogram, selective left renal artery angiograms to the third order with . CONTRAST: 39.6 minutes. PROCEDURE IN DETAIL: After prepping and draping, ultrasound guided puncture of the anterior wall of the right femoral artery was carried out. A 5-English dilator and sheath were placed. A Music[employer] et catheter was then used for contrast angiography of the abdominal aorta and then selective left tera al arteriography was performed ultimately initially with a rim catheter. Initially, a small vessel w as seen extravasating from the mid to lower portion of the kidney. The rim catheter was replaced wit h a glide catheter which was advanced and repeat angiography demonstrated the extravasation, however, it was unclear whether it was coming from the lower pole or mid vessel. For this reason, the glide catheter was advanced over a microcatheter with an 0.018 wire into the lower pole vessels and injecti on was carried out and extravasation was not visualized. The angle-glide catheter was then withdrawn and with the assistance of the microcatheter, the 0.018 wire was advanced into the midsection vessel , at which point, angiography was repeated and contrast extravasation was not seen again. There appe ared to be some extravasation that had not been present earlier from the lower pole of the kidney. C atheter was placed into the lower pole vessel and its lateral segment was coiled with a 6 x 30 interl ock coil. Following this, there was still extravasation from the lower portion of the kidney and the mid renal artery was then cannulated and its lower branches were embolized with 4 x 4 4 x 7 and 4 x 4 pushable coils. Following this, there was no blush in the lower pole of the kidney; however, the l ate extravasation was still noted and at that time . At that point, there was no active extrava sation had been seen earlier and it was elected to terminate the procedure. Sheath was secured and p laced after catheters were withdrawn.
[2018-05-23 03:58] LABS: RBC/HPF 21-50 HPF (0-3)
[2018-05-23 03:59] LABS: Bacteria/HPF 1+ HPF (None Seen); Yeast-All Forms None Seen HPF (None Seen)
[2018-05-23 04:00] LABS: Crystals/HPF None Seen HPF (Negative); Oval Fat Bodies/HPF None Seen HPF (None Seen); Renal Epithelial None Seen HPF (0-3); Sperm/HPF None Seen HPF (None Seen); Transitional Epithelial NONE SEEN HPF (0-3)
[2018-05-23 04:01] LABS: Hyaline Casts/LPF NONE SEEN LPF (0-3 Hyaline); Other Casts/LPF None Seen LPF (0-3 Hyaline)
[2018-05-23 05:14] LABS: #Lymphocytes 0.8 thou/uL (1.20-3.40); #Monocytes 0.3 thou/uL (0.11-0.59); #Neutrophils 10.3 thou/uL (1.40-6.50); %Basophils 0.2 % (0.0-1.0); %Eosinophils 0.2 % (0.0-10.0); %Lymphocytes 6.6 % (21.0-51.0); %Monocytes 2.7 % (0.0-10.0); %Neutrophils 90.2 % (42.0-75.0); Hemoglobin 12.6 g/dL (12.0-16.0); Mean Corpuscular HGB CONC 33.1 g/dL (32.0-36.0); Mean Corpuscular Hemoglobin 30.1 pg (27.0-31.0); Mean Corpuscular Volume 90.9 fL (78.0-98.0); Mean Platelet Volume 8.7 fL (7.4-10.4); Platelet Count 188 thou/uL (130-400); RBC Distribution Width 13.6 % (11.5-14.5); Red Blood Cell (RBC) Count 4.19 mill/uL (4.20-5.40); White Blood Cell (WBC) Count 11.4 thou/uL (4.8-10.8)
[2018-05-23 07:34] LABS: Hemoglobin 12.5 g/dL (12.0-16.0)
[2018-05-23] MEDS: Famotidine/PF 20 mg/2ml Vial SLOW IVP SCH ×2 (08:14→21:54)
[2018-05-23 08:35] LABS: Platelet Count 189 thou/uL (130-400)
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
[2018-05-23] MEDS: Acetaminophen 1,000 MG in Premix Bag 1 BAG IVPB SCH ×2 (11:55→17:27)
[2018-05-23 13:45] LABS: Hemoglobin 11.5 g/dL (12.0-16.0)
[2018-05-23 19:37] LABS: Hemoglobin 11.5 g/dL (12.0-16.0)
[2018-05-23] MEDS: Melatonin 3 MG TAB PO PRN (22:07)
[2018-05-24] MEDS: Acetaminophen 1,000 MG in Premix Bag 1 BAG IVPB SCH ×2 (00:15→05:23)
[2018-05-24] MEDS: Sodium Chloride 0.9% 1,000 ML IV SCH (00:17)
[2018-05-24 05:18] LABS: Anion Gap 8 mmol/L (10-20); BUN (Urea Nitrogen) 9 mg/dL (7.0-18.7); Calc. Creatinine Clearance 161 mL/min (70-130); Calcium 7.6 mg/dL (7.8-10.44); Carbon Dioxide 20 mmol/L (22-29); Chloride 113 mmol/L (98-107); Estimated GFR-MDRD 65; Glucose 88 mg/dL (70-105); Magnesium 1.9 mg/dL (1.6-2.6); Potassium 3.8 mmol/L (3.5-5.1); Sodium 137 mmol/L (136-145)
[2018-05-24 06:34] LABS: #Basophils 0.1 thou/uL (0.0-0.2); #Eosinphils 0.2 thou/uL (0.0-0.7); #Lymphocytes 1.3 thou/uL (1.20-3.40); #Monocytes 0.8 thou/uL (0.11-0.59); #Neutrophils 5.9 thou/uL (1.40-6.50); %Basophils 0.6 % (0.0-1.0); %Eosinophils 2.3 % (0.0-10.0); %Lymphocytes 16.2 % (21.0-51.0); %Monocytes 9.1 % (0.0-10.0); %Neutrophils 71.9 % (42.0-75.0); Hemoglobin 10.5 g/dL (12.0-16.0); Mean Corpuscular Hemoglobin 31.1 pg (27.0-31.0); Mean Corpuscular Volume 91.5 fL (78.0-98.0); Mean Platelet Volume 9.7 fL (7.4-10.4); PLT Morphology Comment Appears Decreased; Platelet Count 118 thou/uL (130-400); RBC Distribution Width 13.4 % (11.5-14.5); Red Blood Cell (RBC) Count 3.38 mill/uL (4.20-5.40); White Blood Cell (WBC) Count 8.2 thou/uL (4.8-10.8)
[2018-05-24] MEDS ORDERED: Magnesium Sulfate 3 GM in Sodium Chloride 0.9% 250 ML 250 ML IVPB SCH (07:00)
[2018-05-24] MEDS: Famotidine/PF 20 mg/2ml Vial SLOW IVP SCH ×2 (07:52→20:48)
[2018-05-24] MEDS ORDERED: Potassium Phosphate 30 MMOL in Sodium Chloride 0.9% 250 ML 250 ML IVPB SCH (08:00)
[2018-05-24] MEDS: Acetaminophen 500 MG TAB PO SCH ×3 (08:03→20:48)
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
[2018-05-24] MEDS: Morphine 4 MG/ML VIAL SLOW IVP PRN ×3 (10:14→20:49)
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
[2018-05-24] MEDS ORDERED: ISOVUE-370 76%-LOCM 1 ML ONE (14:56)
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
[2018-05-24] MEDS: Apixaban 2.5 MG TAB PO SCH (20:47)
[2018-05-24] MEDS: Melatonin 3 MG TAB PO PRN (20:48)
[2018-05-25] MEDS: Acetaminophen 500 MG TAB PO SCH ×4 (02:11→21:45)
[2018-05-25] MEDS: Morphine 4 MG/ML VIAL SLOW IVP PRN (02:11)
[2018-05-25 06:44] LABS: Anion Gap 8 mmol/L (10-20); BUN (Urea Nitrogen) 9 mg/dL (7.0-18.7); Calc. Creatinine Clearance 171 mL/min (70-130); Calcium 7.8 mg/dL (7.8-10.44); Carbon Dioxide 22 mmol/L (22-29); Chloride 111 mmol/L (98-107); Estimated GFR-MDRD 67; Glucose 97 mg/dL (70-105); Magnesium 2.2 mg/dL (1.6-2.6); Phosphorus 2.1 mg/dL (2.3-4.7); Potassium 3.9 mmol/L (3.5-5.1); Sodium 137 mmol/L (136-145)
[2018-05-25 06:45] LABS: #Eosinphils 0.2 thou/uL (0.0-0.7); #Lymphocytes 1.1 thou/uL (1.20-3.40); #Monocytes 0.6 thou/uL (0.11-0.59); #Neutrophils 4.9 thou/uL (1.40-6.50); %Basophils 0.4 % (0.0-1.0); %Eosinophils 3.6 % (0.0-10.0); %Lymphocytes 16.5 % (21.0-51.0); %Monocytes 8.6 % (0.0-10.0); Hemoglobin 9.8 g/dL (12.0-16.0); Mean Corpuscular HGB CONC 34.7 g/dL (32.0-36.0); Mean Corpuscular Hemoglobin 31.3 pg (27.0-31.0); Mean Corpuscular Volume 90.4 fL (78.0-98.0); Platelet Count 136 thou/uL (130-400); RBC Distribution Width 13.3 % (11.5-14.5); Red Blood Cell (RBC) Count 3.14 mill/uL (4.20-5.40); White Blood Cell (WBC) Count 6.9 thou/uL (4.8-10.8)
[2018-05-25] MEDS: traMADol HCl 50 MG TAB PO PRN ×2 (08:35→21:46)
[2018-05-25] MEDS: Apixaban 2.5 MG TAB PO SCH ×2 (08:37→21:47)
[2018-05-25] MEDS: Famotidine/PF 20 mg/2ml Vial SLOW IVP SCH ×2 (10:56→21:45)
[2018-05-25] MEDS: Senokot S 8.6-50 MG TAB PO SCH (21:45)
[2018-05-25] MEDS: Cyclobenzaprine 10 MG TAB PO PRN (21:46)
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
[2018-05-25] MEDS: CEFAZOLIN 1 GM in Sodium Chloride 0.9% 100 ML IVPB SCH (23:57)
[2018-05-26] MEDS: Acetaminophen 500 MG TAB PO SCH ×4 (00:04→21:44)
[2018-05-26 05:38] LABS: #Eosinphils 0.4 thou/uL (0.0-0.7); #Lymphocytes 1.6 thou/uL (1.20-3.40); #Monocytes 0.5 thou/uL (0.11-0.59); #Neutrophils 4.2 thou/uL (1.40-6.50); %Basophils 0.4 % (0.0-1.0); %Eosinophils 5.4 % (0.0-10.0); %Lymphocytes 23.5 % (21.0-51.0); %Monocytes 7.7 % (0.0-10.0); %Neutrophils 62.9 % (42.0-75.0); Hemoglobin 9.7 g/dL (12.0-16.0); Mean Corpuscular HGB CONC 35.6 g/dL (32.0-36.0); Mean Corpuscular Hemoglobin 32.4 pg (27.0-31.0); Mean Corpuscular Volume 90.8 fL (78.0-98.0); Mean Platelet Volume 9.1 fL (7.4-10.4); Platelet Count 137 thou/uL (130-400); RBC Distribution Width 13.3 % (11.5-14.5); Red Blood Cell (RBC) Count 2.98 mill/uL (4.20-5.40); White Blood Cell (WBC) Count 6.6 thou/uL (4.8-10.8)
[2018-05-26 05:45] LABS: Anion Gap 6 mmol/L (10-20); BUN (Urea Nitrogen) 10 mg/dL (7.0-18.7); Calc. Creatinine Clearance 159 mL/min (70-130); Calcium 8.1 mg/dL (7.8-10.44); Carbon Dioxide 25 mmol/L (22-29); Chloride 111 mmol/L (98-107); Estimated GFR-MDRD 62; Glucose 86 mg/dL (70-105); Magnesium 1.9 mg/dL (1.6-2.6); Phosphorus 2.5 mg/dL (2.3-4.7); Potassium 4.2 mmol/L (3.5-5.1); Sodium 138 mmol/L (136-145)
[2018-05-26] MEDS: CEFAZOLIN 1 GM in Sodium Chloride 0.9% 100 ML IVPB SCH ×3 (05:46→21:47)
[2018-05-26] MEDS: traMADol HCl 50 MG TAB PO PRN ×2 (07:36→21:44)
[2018-05-26] MEDS: Cyclobenzaprine 10 MG TAB PO PRN ×2 (07:36→21:43)
[2018-05-26] MEDS: Apixaban 2.5 MG TAB PO SCH (09:00)
[2018-05-26] MEDS: Polyethylene Glycol 3350 17 GM Packet PO SCH (09:00)
[2018-05-26] MEDS: Famotidine/PF 20 mg/2ml Vial SLOW IVP SCH (09:00)
[2018-05-26] MEDS: Senokot S 8.6-50 MG TAB PO SCH ×2 (09:00→21:44)
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
[2018-05-26] MEDS: Apixaban 5 MG TAB PO SCH (21:44)
[2018-05-27] MEDS: Acetaminophen 500 MG TAB PO SCH ×4 (02:44→20:08)
[2018-05-27] MEDS: CEFAZOLIN 1 GM in Sodium Chloride 0.9% 100 ML IVPB SCH (05:15)
[2018-05-27 05:38] LABS: #Eosinphils 0.3 thou/uL (0.0-0.7); #Monocytes 0.4 thou/uL (0.11-0.59); #Neutrophils 3.8 thou/uL (1.40-6.50); %Basophils 0.2 % (0.0-1.0); %Eosinophils 5.9 % (0.0-10.0); %Lymphocytes 18.5 % (21.0-51.0); %Monocytes 6.5 % (0.0-10.0); Hemoglobin 9.9 g/dL (12.0-16.0); Mean Corpuscular HGB CONC 34.8 g/dL (32.0-36.0); Mean Corpuscular Hemoglobin 31.5 pg (27.0-31.0); Mean Corpuscular Volume 90.6 fL (78.0-98.0); Mean Platelet Volume 8.2 fL (7.4-10.4); Platelet Count 170 thou/uL (130-400); RBC Distribution Width 13.4 % (11.5-14.5); Red Blood Cell (RBC) Count 3.14 mill/uL (4.20-5.40); White Blood Cell (WBC) Count 5.6 thou/uL (4.8-10.8)
[2018-05-27 05:48] LABS: Anion Gap 10 mmol/L (10-20); BUN (Urea Nitrogen) 12 mg/dL (7.0-18.7); Calc. Creatinine Clearance 188 mL/min (70-130); Calcium 8.5 mg/dL (7.8-10.44); Carbon Dioxide 24 mmol/L (22-29); Chloride 108 mmol/L (98-107); Estimated GFR-MDRD 73; Glucose 111 mg/dL (70-105); Magnesium 2.2 mg/dL (1.6-2.6); Phosphorus 2.7 mg/dL (2.3-4.7); Potassium 4.2 mmol/L (3.5-5.1); Sodium 138 mmol/L (136-145)
[2018-05-27] MEDS ORDERED: Milk Of Magnesia 30 ML UDCUP PO PRN (07:40)
[2018-05-27] MEDS: Polyethylene Glycol 3350 17 GM Packet PO SCH (08:31)
[2018-05-27] MEDS: Senokot S 8.6-50 MG TAB PO SCH ×2 (08:32→20:07)
[2018-05-27] MEDS: Apixaban 5 MG TAB PO SCH ×2 (08:32→20:07)
[2018-05-27] MEDS: Cyclobenzaprine 10 MG TAB PO PRN ×2 (08:32→16:46)
[2018-05-27] MEDS: traMADol HCl 50 MG TAB PO PRN ×3 (08:32→23:04)
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
[2018-05-27] MEDS ORDERED: Magnesium Citrate 300 ML BOT PO SCH (10:45)
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
[2018-05-27] MEDS: Bisacodyl 10 MG SUPP PR SCH (20:08)
[2018-05-28] MEDS: Acetaminophen 500 MG TAB PO SCH ×3 (03:14→14:14)
[2018-05-28] MEDS: Cyclobenzaprine 10 MG TAB PO PRN ×2 (04:29→14:16)
[2018-05-28 06:24] LABS: #Eosinphils 0.4 thou/uL (0.0-0.7); #Monocytes 0.7 thou/uL (0.11-0.59); #Neutrophils 5.9 thou/uL (1.40-6.50); %Basophils 0.3 % (0.0-1.0); %Eosinophils 4.8 % (0.0-10.0); %Neutrophils 73.9 % (42.0-75.0); Hemoglobin 10.4 g/dL (12.0-16.0); Mean Corpuscular HGB CONC 34.2 g/dL (32.0-36.0); Mean Corpuscular Hemoglobin 31.2 pg (27.0-31.0); Mean Corpuscular Volume 91.1 fL (78.0-98.0); Mean Platelet Volume 8.6 fL (7.4-10.4); Platelet Count 206 thou/uL (130-400); RBC Distribution Width 13.6 % (11.5-14.5); Red Blood Cell (RBC) Count 3.32 mill/uL (4.20-5.40)
[2018-05-28 06:45] LABS: Anion Gap 10 mmol/L (10-20); BUN (Urea Nitrogen) 12 mg/dL (7.0-18.7); Calc. Creatinine Clearance 182 mL/min (70-130); Calcium 8.7 mg/dL (7.8-10.44); Carbon Dioxide 23 mmol/L (22-29); Chloride 106 mmol/L (98-107); Estimated GFR-MDRD 70; Glucose 96 mg/dL (70-105); Phosphorus 2.7 mg/dL (2.3-4.7); Potassium 4.4 mmol/L (3.5-5.1); Sodium 135 mmol/L (136-145)
[2018-05-28] MEDS: Apixaban 5 MG TAB PO SCH (08:31)
[2018-05-28] MEDS: Polyethylene Glycol 3350 17 GM Packet PO SCH (08:32)
[2018-05-28] MEDS: Senokot S 8.6-50 MG TAB PO SCH (08:32)
[2018-05-28] MEDS: Bisacodyl 10 MG SUPP PR SCH ×2 (08:33→16:09)
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
[2018-05-28] MEDS: traMADol HCl 50 MG TAB PO PRN ×2 (09:30→15:38)
[2018-05-28 12:21] VITALS: BP 143/86; TEMP 98.7
[2018-05-28] MEDS ORDERED: Ferrous Sulfate 325 MG TAB PO SCH (17:00)
[2018-05-28] MEDS ORDERED: Ascorbic Acid 500 mg Chewable Tablet PO SCH (21:00)
== END 2018-05-28 15:55 | disposition home or self-care (01) | DRG 958 ==
LOC: ERS 18:38 → SDC/OP 20:10 → EEVIPCON 23:07 → CCU 23:07 → SURG B 05-24 08:52
PROVIDERS: ADMIT Thoracic Surgery (Cardiothoracic Vascular Surgery); ATTEND Thoracic Surgery (Cardiothoracic Vascular Surgery)
PROC: 04LA3DZ Occlusion of Left Renal Artery with Intraluminal Device, Percutaneous Approach (ICD-10-PCS; principal; 2018-05-22)
DX: S37.052A Moderate laceration of left kidney, initial encounter (principal); S36.030A Superficial (capsular) laceration of spleen, initial encounter; Z68.42 Body mass index [BMI] 45.0-49.9, adult; D62 Acute posthemorrhagic anemia; I11.0 Hypertensive heart disease with heart failure; I50.9 Heart failure, unspecified; S00.83XA Contusion of other part of head, initial encounter; E66.01 Morbid (severe) obesity due to excess calories; E87.6 Hypokalemia; E83.39 Other disorders of phosphorus metabolism; E83.42 Hypomagnesemia; Z86.711 Personal history of pulmonary embolism; Z86.718 Personal history of other venous thrombosis and embolism; Z79.01 Long term (current) use of anticoagulants; V49.49XA Driver injured in collision with other motor vehicles in traffic accident, initial encounter
CPT/HCPCS: 36253; 36415; 37244; 70450; 71045; 71260; 72125; 74177; 74178; 74410; 76942; 80048; 80053; 81015; 83690; 83735; 84100; 85014; 85018; 85025; 85576; 85610; 85730; 86850; 86900; 86901; 87086; 93005; 93010; 96374; 96375; C1725; C1769; G0390; G8978-GP-CJ; G8979-GP-CJ; G8980-GP-CJ; G8987-GO-CL; G8988-GO-CK; J0131; J0360; J0690; J1644; J2250; J2270; J2405; J3010; J3475; J7050; Q0162; S0028